=== PATIENT | male | born 2000 | race Caucasian/White ===

== ENCOUNTER 2024-04-05 07:00 | Day surgery (SDC) | payer BC ==
[~2024-04-05 07:00] MED LIST: Dexamethasone 4 MG/ML 5 ML MDV ONE; Ketorolac 30 MG/ML SDV ONE; Lidocaine 2% 5 ML SDV ONE; Midazolam 1 MG/ML 2 ML SDV ONE; Ondansetron 4 MG/2 ML SDV ONE; Propofol 200 MG/20 ML SDV ONE; Sodium Chloride 0.9% 10 ML Syringe FLUSH PRN; Sodium Chloride 0.9% 10 ML Syringe FLUSH SCH; ceFAZolin 2 GM Vial ONE; fentaNYL 100 MCG/2 ML SDV ONE
[2024-04-05] MEDS: Lactated Ringers 1,000 ML IV SCH (07:15)
[2024-04-05] MEDS: Acetaminophen 325 MG Tab PO ONE (07:27)
[2024-04-05] MEDS: oxyCODONE ER 10 MG TAB.ER PO ONE (07:27)
[2024-04-05] MEDS: Pregabalin 25 MG Cap PO ONE (07:27)
[2024-04-05] MEDS ORDERED: dexmedeTOMIDine HCl 200 MCG/2 ML SDV ONE (08:48)
[2024-04-05] MEDS ORDERED: HYDROmorphone 0.5 MG/0.5 ML Syringe IVPUSH PRN (08:54)
[2024-04-05] MEDS ORDERED: Ondansetron 4 MG/2 ML SDV IVPUSH PRN (08:54)
[2024-04-05] MEDS ORDERED: fentaNYL 100 MCG/2 ML SDV IVPUSH PRN (08:54)
[2024-04-05] MEDS: Vancomycin 1 GM SDV ONE (09:09)
[2024-04-05] MEDS: Morphine 8 MG, EPINEPHrine 0.3 MG, Cefuroxime 750 MG, Ketorolac 30 MG, Sodium Chloride ... PRN (09:09)
[2024-04-05] MEDS: Tranexamic Acid 1,000 MG/10 ML Vial ONE (09:09)
[2024-04-05] MEDS: Acetaminophen/HYDROcodone 325-5 MG Tab PO PRN (11:31)
== END 2024-04-05 15:45 | disposition home or self-care (01) ==
LOC: JD.SDS 07:00
PROVIDERS: ATTEND Orthopaedic Surgery
DX: M87.9 Osteonecrosis, unspecified (principal); F17.200 Nicotine dependence, unspecified, uncomplicated
CPT/HCPCS: 01214; 36415; 73501-26-LT; 73501-LT; 86850; 86900; 86901; 97110-GP; 97161-GP; A9270-GY; C1713; C1776; J0171; J0690; J0697; J1100; J1885; J2250; J2270; J2405; J2704; J3010; J3370; J3490; J7120